=== PATIENT | female | born 1995 | race Caucasian/White ===

== ENCOUNTER 2021-11-12 20:11 | Emergency (ER) | payer OTHER ==
[~2021-11-12] VITALS: Ht 152.4 cm; Wt 61.2 kg
== END 2021-11-12 23:19 | disposition home or self-care (01) ==
LOC: ER 20:11
DX: O23.41 Unspecified infection of urinary tract in pregnancy, first trimester (principal); Z3A.12 12 weeks gestation of pregnancy; Z20.822 Contact with and (suspected) exposure to COVID-19; N39.0 Urinary tract infection, site not specified

== ENCOUNTER 2022-05-09 15:46 | Inpatient (IN) | payer OTHER ==
[~2022-05-09] VITALS: Ht 149.9 cm; Wt 92.1 kg
[2022-05-09] MEDS ORDERED: PRENATAL + DHA1 EAC1 (18:02)
== END 2022-05-12 15:49 | disposition home or self-care (01) | DRG 807 ==
LOC: OBS/DEL 15:46 → OB/GYN 05-10 10:14 → LDR 05-10 10:14 → OB/GYN 05-10 21:03
PROVIDERS: ADMIT Obstetrics & Gynecology; ATTEND Obstetrics & Gynecology
PROC: BY4FZZZ Ultrasonography of Third Trimester, Single Fetus (ICD-10-PCS; 2022-05-09)
PROC: 10E0XZZ Delivery of Products of Conception, External Approach (ICD-10-PCS; principal; 2022-05-10)
PROC: 4A1HXCZ Monitoring of Products of Conception, Cardiac Rate, External Approach (ICD-10-PCS; 2022-05-10)
PROC: BY4FZZZ Ultrasonography of Third Trimester, Single Fetus (ICD-10-PCS; 2022-05-10)
DX: O36.8130 Decreased fetal movements, third trimester, not applicable or unspecified (principal); Z37.0 Single live birth; Z3A.37 37 weeks gestation of pregnancy; Z20.822 Contact with and (suspected) exposure to COVID-19; O26.843 Uterine size-date discrepancy, third trimester

== ENCOUNTER 2023-10-06 15:42 | Inpatient (IN) | payer OTHER ==
[~2023-10-06] VITALS: Ht 149.9 cm; Wt 93.9 kg
[~2023-10-06 15:42] MED LIST: PRENATAL + DHA1 EAC1
[2023-10-06] MEDS ORDERED: RINGERS SOLUTION,LACTATED 1,000 ML IV SCH (15:45)
[2023-10-06 16:58] LABS: PH,URINE 6.5 (5.0-8.0); URINE APPEARANCE Clear; URINE BILIRRUBIN Negative (NEGATIVE); URINE BLOOD Negative; URINE COLOR Yellow; URINE GLUCOSE Negative (NEGATIVE); URINE LEUKOCYTE Trace; URINE NITRATE Negative; URINE PROTEIN Negative (NEGATIVE)
[2023-10-06 17:01] LABS: URINE BACTERIA 449.8 uL (0.0-1933); URINE EPITHELIAL CELLS 13.4 uL (0.0-38.8); URINE RBC 3.3 uL (0.0-20.8)
[2023-10-06 17:06] LABS: HEMATOCRIT 26.1 % (36.0-45.00); PLATELET COUNT 503 K/uL (150-450); RED BLOOD COUNT 3.95 M/uL (4.00-6.00); RED CELL DISTRIBUTION WIDTH 17.2 % (11.5-14.5)
[2023-10-06 17:09] LABS: HEMOGLOBIN 8.4 g/dL (12.0-15.00); MEAN CELL VOLUME 66.2 fL (80.00-100.00); MEAN CORPUSCULAR HEMOGLOBIN 21.2 pg (27.00-32.0)
[2023-10-06] MEDS ORDERED: PRENATAL + DHA1 EAC1 PO (17:52)
[2023-10-06] MEDS ORDERED: OXYTOCIN 20 UNITS/1000ML RL PIGGYBAG IV ONE (18:01)
[2023-10-06] MEDS ORDERED: CHLORHEXIDINE GLUCONATE 120 ML BOTTLE TOP ONE (18:01)
[2023-10-06] MEDS ORDERED: ERYTHROMYCIN BASE 1 GM TUBE OP ONE (18:01)
[2023-10-06] MEDS ORDERED: OXYTOCIN 20 UNITS/500ML RL PIGGYBAG IV ONE (18:15)
[2023-10-06] MEDS ORDERED: ACETAMINOPHEN 500 MG GEL..CAP PO PRN (22:00)
[2023-10-06] MEDS ORDERED: ERYTHROMYCIN BASE 1 GM TUBE OP SCH (22:00)
[2023-10-06] MEDS ORDERED: OXYTOCIN 20 UNITS/500ML RL PIGGYBAG IV SCH (22:00)
[2023-10-06] MEDS ORDERED: LIDOCAINE HCL 1% 200MG/20ML VIAL IJ SCH (22:00)
[2023-10-06] MEDS ORDERED: OXYTOCIN 1,000 ML IV SCH (22:00)
[2023-10-06] MEDS ORDERED: CHLORHEXIDINE GLUCONATE 120 ML BOTTLE TOP SCH (22:00)
[2023-10-06] MEDS ORDERED: IBUprofen 400 MG TABLET PO PRN (23:45)
[2023-10-07 00:47] LABS: HEMATOCRIT 25.5 % (36.0-45.00); MEAN CORPUSCULAR HEMOGLOBIN 20.1 pg (27.00-32.0); MEAN CORPUSCULAR HGB CONC 31.1 g/dl (32.0-36.0); PLATELET COUNT 458 K/uL (150-450); RED BLOOD COUNT 3.93 M/uL (4.00-6.00); RED CELL DISTRIBUTION WIDTH 17.4 % (11.5-14.5)
[2023-10-07 00:49] LABS: HEMOGLOBIN 7.9 g/dL (12.0-15.00)
[2023-10-07] MEDS ORDERED: PNV,CALCIUM 72/IRON/FOLIC ACID 1 TAB TABLET PO SCH (09:00)
[2023-10-07] MEDS ORDERED: FERROUS SULFATE 325 MG TABLET.EC PO SCH (11:04)
== END 2023-10-08 11:55 | disposition home or self-care (01) | DRG 807 ==
LOC: LDR 15:42 → OB/GYN 15:42
PROVIDERS: ADMIT Obstetrics & Gynecology; ATTEND Obstetrics & Gynecology
PROC: 10E0XZZ Delivery of Products of Conception, External Approach (ICD-10-PCS; principal; 2023-10-06)
PROC: 0HQ9XZZ Repair Perineum Skin, External Approach (ICD-10-PCS; 2023-10-06)
PROC: 4A1HXCZ Monitoring of Products of Conception, Cardiac Rate, External Approach (ICD-10-PCS; 2023-10-06)
DX: O70.1 Second degree perineal laceration during delivery (principal); Z37.0 Single live birth; Z3A.37 37 weeks gestation of pregnancy; Z20.822 Contact with and (suspected) exposure to COVID-19